=== PATIENT | female | born 1965 | race African-American/Black ===

== ENCOUNTER 2017-09-28 19:31 | Emergency (ER) | payer OTHER ==
[2017-09-28 20:00] LABS: Base Excess -1.1 mEq/L (-2 - +2); pH (venous) 7.39 (7.35-7.45)
[2017-09-28 20:01] LABS: Hemoglobin (Hb) 9.6 g/dL (11.7-16.0)
[2017-09-28 20:02] LABS: #Basophils 0.2 thou/uL (0.0-0.2); #Eosinphils 0.6 thou/uL (0.0-0.7); #Lymphocytes 2.9 thou/uL (1.20-3.40); #Monocytes 0.8 thou/uL (0.11-0.59); #Neutrophils 6.9 thou/uL (1.40-6.50); %Basophils 1.6 % (0.0-1.0); %Eosinophils 4.9 % (0.0-10.0); %Lymphocytes 25.6 % (21.0-51.0); %Monocytes 7.3 % (0.0-10.0); %Neutrophils 60.7 % (42.0-75.0); Hemoglobin 9.3 g/dL (12.0-16.0); Mean Corpuscular HGB CONC 34.1 g/dL (32.0-36.0); Mean Corpuscular Hemoglobin 29.2 pg (27.0-31.0); Mean Corpuscular Volume 85.7 fl (81.0-99.0); Mean Platelet Volume 7.5 fL (7.4-10.4); Platelet Count 155 thou/uL (130-400); RBC Distribution Width 14.8 % (11.5-14.5); Red Blood Cell (RBC) Count 3.18 mill/uL (4.20-5.40); White Blood Cell (WBC) Count 11.4 thou/uL (4.8-10.8)
[2017-09-28 20:14] LABS: ALT (SGPT) 88 U/L (8-55); AST (SGOT) 47 U/L (5-34); Albumin 3.9 g/dL (3.5-5.0); Alkaline Phosphatase 143 U/L (40-150); Anion Gap 20 mmol/L (10-20); BUN (Urea Nitrogen) 41 mg/dL (9.8-20.1); Bilirubin, Total 0.5 mg/dL (0.2-1.2); Calc. Creatinine Clearance 0 mL/min (70-130); Calcium 10.4 mg/dL (7.8-10.44); Carbon Dioxide 22 mmol/L (22-29); Chloride 104 mmol/L (98-107); Estimated GFR-MDRD 11; Globulin 3.9 g/dL (2.4-3.5); Glucose 98 mg/dL (70-105); Potassium 3.8 mmol/L (3.5-5.1); Protein, Total 7.8 g/dL (6.0-8.3); Sodium 142 mmol/L (136-145)
[2017-09-28 20:16] LABS: CKMB 0.3 ng/mL (0-6.6); Troponin I Less than 0.010 ng/mL (< 0.028)
[2017-09-28] MEDS ORDERED: Heparin 5,000 UNITS/ML VIAL ONE (20:33)
[2017-09-28] MEDS ORDERED: Heparin 25,000 units/D5W 500 ML ONE (20:33)
[2017-09-28 20:36] LABS: INR-International Normal Ratio 1.1; PTT 30.3 SEC (22.9-36.1)
[2017-09-28 20:49] LABS: BHCG - Serum Negative (NEGATIVE); Pregs Control Background? CLEAR/WHITE (CLR/WHITE); Pregs Control Bar Appear? YES (CONTROL BAR)
--- NOTE | 2017-09-29 07:14 | RAD ---
CHEST 2 VIEWS: Date: 09/28/17 The heart is normal in size. There is no vascular congestion, edema, or pleural effusion. No major lo bar infiltrate was seen. There is a little haziness in the right base medially that could be atelecta sis. The trachea is midline and the mediastinum appears normal. IMPRESSION: No definite acute finding. POS: HOME
== END 2017-09-28 21:07 | disposition short-term general hospital (02) ==
LOC: BURERS 19:31
DX: I26.99 Other pulmonary embolism without acute cor pulmonale (principal); N19 Unspecified kidney failure; I10 Essential (primary) hypertension; F17.220 Nicotine dependence, chewing tobacco, uncomplicated
CPT/HCPCS: 71046; 80053; 82553; 82805; 83880; 84484; 84703; 85025; 85379; 85610; 85730; 93005; 96365; 96376; J1644